=== PATIENT | female | born 1965 ===

== ENCOUNTER 2022-10-16 06:50 | Day surgery (SDC) | payer OTHER ==
[~2022-10-16] VITALS: Ht 152.4 cm; Wt 69.4 kg
[2022-10-16] MEDS ORDERED: MORGIDOX100 MG PO (17:23)
[2022-10-16] MEDS ORDERED: NAPR500T14 PO (17:23)
== END 2022-10-16 22:05 | disposition home or self-care (01) ==
LOC: CIR.AMB 06:50
PROVIDERS: ATTEND Obstetrics & Gynecology
DX: N92.0 Excessive and frequent menstruation with regular cycle (principal); N84.0 Polyp of corpus uteri; D25.0 Submucous leiomyoma of uterus; Z88.2 Allergy status to sulfonamides; Z20.822 Contact with and (suspected) exposure to COVID-19; I10 Essential (primary) hypertension; E78.00 Pure hypercholesterolemia, unspecified; Z86.16 Personal history of COVID-19; E11.9 Type 2 diabetes mellitus without complications